=== PATIENT | female | born 2000 | race Caucasian/White ===

== ENCOUNTER 2020-09-06 20:31 | Emergency (ER) | payer OTHER, SELFPAY ==
[2020-09-06 20:47] VITALS: BP 140/96; PULSE 65; RESP 16; TEMP 37.1; O2SAT 99; BMI 22.7
[2020-09-06 22:00] VITALS: BP 140/89; PULSE 62; RESP 18; TEMP 36.8; O2SAT 100
--- NOTE | 2020-09-06 22:01 | US_ITS ---
EXAMINATION: US ABDOMEN LIMITED CLINICAL INFORMATION: Right upper quadrant pain. Question gallstone. COMPARISON: None TECHNIQUE: Real-time imaging of the right upper quadrant abdominal viscera. FINDINGS: PANCREAS: Normal. LIVER: Normal. The liver is normal in size. The liver contour is normal. Parenchymal echogenicity is normal. No focal hepatic lesion. There is no intrahepatic biliary duct dilatation seen. GALLBLADDER: Normal. The gallbladder is physiologically distended without evidence of stones, sludge, polyps, wall thickening or pericholecystic fluid. The voice over announcer reports tenderness upon imaging of the gallbladder. COMMON BILE DUCT: Normal in caliber measuring 0.6 cm in diameter. RIGHT KIDNEY: Normal. No hydronephrosis. No renal calculi or focal parenchymal lesions. The kidney measures 10.2 cm in maximum dimension. FREE FLUID: None. US/US abdomen limited IMPRESSION: The voice over announcer reports tenderness upon imaging of the gallbladder but no gallstones, gallbladder wall thickening, or pericholecystic fluid are seen.
--- NOTE | 2020-09-06 22:01 | ED.ABDPAIN ---
HPI - Abdominal Pain General Chief Complaint: Abdominal Pain Stated Complaint: Abdominal Pain Time Seen by Provider: 09/06/20 21:47 Source: patient Mode of arrival: ambulatory Limitations: no limitations History of Present Illness HPI narrative: patient has upper abdominal epigastric pain for last few months seen her primary care doctor who did the blood today which showed high Eosinophil count 24 per patient taking Prilosec patient has increased pain after eating sometimes little nausea no vomiting MD elicited complaint: abdominal pain Pertinent past history: gastritis Onset (ago): month(s) Location: epigastric Severity: mild Related Data Home Medications Medication Instructions Recorded Confirmed L norgest/e.estradiol-e.estrad 1 tab PO DAILY 09/06/20 09/06/20 albuterol sulfate 2 puff PO Q4-6H PRN 09/06/20 09/06/20 fluconazole 1 tab PO ONCE 09/06/20 09/06/20 omeprazole 1 cap PO DAILY 09/06/20 09/06/20 Previous Rx's Medication Instructions Recorded prednisone 40 mg PO DAILY #10 tab 09/06/20 Allergies Allergy/AdvReac Type Severity Reaction Status Date / Time No Known Allergies Allergy Verified 09/06/20 20:54 Review of Systems Review of Systems REVIEW OF SYSTEMS: Pertinent positives and negatives are stated above in the history. GEN: no fevers, chills, fatigue HEENT: no nasal congestion, sore throat, ear pain NEURO: no headache, dizziness, focal weakness PULM: no cough, shortness of breath CV: no chest pain, palpitations, LE edema ABD: no vomiting, diarrhea : no dysuria, urgency, frequency SKIN: no rash ROS otherwise negative x 10 Physical Exam Vital Signs: Vital Signs: Last Vital Signs Temp 98.3 F 09/06/20 22:00 Pulse 62 09/06/20 22:00 Resp 18 09/06/20 22:00 BP 140/89 H 09/06/20 22:00 Pulse Ox 100 09/06/20 22:00 Body Mass Index 22.7 Appearance: Alert. Oriented X3. No acute distress. Eyes: Pupils equal, round and reactive to light. ENT: Pharynx normal. Neck: Normal inspection. Neck supple. CVS: Normal heart rate and rhythm. Pulses normal. Respiratory: No respiratory distress. Breath sounds normal. Abdomen: Soft and mild tenderness in epigastric area and right upper quadrant no rebound tenderness no guarding bowel sounds are present Skin: Skin warm and dry. Normal skin color. Normal skin turgor. Extremities: No lower extremity edema. Good range of movement Neuro: Oriented X 3. No motor deficit. No sensory deficit. MDM - Abdominal Pain MDM Narrative Medical decision making narrative: patient with epigastric pain with elevated eosinophilic count etiology is not very clear patient does have history of asthma but patient at this time no wheezing or flare up of asthma. Elevated eosinophilic count could be part of eosinophilic esophagitis. Will give a course of prednisone advised to continue Prilosec. Patient ultrasound for gallbladder is negative for gallstones Discharge Plan Discharge Clinical Impression: Esophagitis Patient Disposition: Home, Self-Care Instructions: Esophagitis (ED) Additional Instructions: continue medications take Prilosec, follow-up with plc programmer for further workup Prescriptions: New prednisone 20 mg tablet 40 mg PO DAILY Qty: 10 RF: 0 No Action fluconazole 150 mg tablet 1 tab PO ONCE RF: 0 omeprazole 40 mg capsule,delayed release(DR/EC) 1 cap PO DAILY RF: 0 albuterol sulfate 90 mcg/actuation HFA aerosol inhaler 2 puff PO Q4-6H PRN (Reason: sob) RF: 0 L norgest/e.estradiol-e.estrad 0.15 mg-30 mcg (84)/10 mcg (7) tablets,dose pack,3 month 1 tab PO DAILY RF: 0 Referrals: Apple Rodriguez MD [Physician] - 1 week [facility] Past Medical History Medical History Asthma Migraine Social History Social History Alcohol intake: current Alcohol intake frequency: a few times a month Alcohol type: hard liquor Smoked in Last 30 Days: No Use of substances other than those prescribed or required for medical reasons: No Advance Directives: No Advance Directives Information Provided: No
[2020-09-06] MEDS: Magnesium Hydrox/Alum Hydrox 30 ML ORAL.SUSP PO (22:47)
[2020-09-06] MEDS: predniSONE 20 MG TABLET 40 MG PO (23:30)
== END 2020-09-06 23:46 | disposition home or self-care (01) ==
PROVIDERS: Emergency Provider Internal Medicine; PCP Internal Medicine
DX: K20.90 Esophagitis, unspecified without bleeding (principal); Z79.899 Other long term (current) drug therapy
CPT/HCPCS: 76705; 99284

== ENCOUNTER → 2020-10-13 12:02 | Outpatient (BNVA) | payer OTHER, SELFPAY | PROVIDERS: PCP Internal Medicine; Visit Provider Physician Assistant | DX: Z76.89 Persons encountering health services in other specified circumstances (principal) ==

== ENCOUNTER 2020-10-15 10:32 | Outpatient (REF) | payer OTHER, SELFPAY ==
[2020-10-15 11:12] LABS: MANUAL DIFF FLAG NO
[2020-10-15 11:16] LABS: Basophils Absolute Auto 0.1 X10*3/uL (0.0-0.2); Basophils Percent Auto 0.9 % (0-2); Eosinophils Absolute Auto 0.2 X10*3/uL (0.0-0.4); Eosinophils Percent Auto 3.8 % (0-4); Hematocrit 39.5 % (37-47); Imm Gran Abs Auto 0.01 X10*3/uL (0.00-0.03); Imm Gran Pct Auto 0.2 % (0.0-0.4); Lymphocytes Absolute Auto 1.6 X10*3/uL (1.2-4.9); Lymphocytes Percent Auto 25.5 % (20-40); Mean Corpuscular HGB Conc 32.9 g/dl (31.0-35.0); Mean Platelet Volume 9.7 fL (9.4-12.3); Monocytes Absolute Auto 0.4 X10*3/uL (0.1-1.2); Monocytes Percent Auto 6.9 % (2-11); Neutrophils Percent Auto 62.7 % (45-73); Platelet Count 353 X10*3/uL (160-400); Red Blood Count 4.49 X10*6/uL (4.20-5.50); Red Cell Distribution Width 12.8 % (11.0-16.0); White Blood Count 6.4 X10*3/uL (4.8-10.8)
[2020-10-15 11:41] LABS: Alanine Aminotransferase 13 U/L (0-31); Alkaline Phosphatase 46 U/L (39-117); Anion Gap 14 (12-20); Aspartate Amino Transferase 13 U/L (5-31); Bilirubin Total 0.6 mg/dL (0.0-1.0); Blood Urea Nitrogen 11 mg/dL (9-16); Calcium 9.3 mg/dL (8.4-10.2); Carbon Dioxide 24 mmol/L (22-29); Chloride 105 mmol/L (96-108); Estimated Glomerular Filt Rate > 60; Glucose Random 93 mg/dL (60-115); Potassium 4.5 mmol/l (3.3-5.1); Sodium 138 mmol/L (135-145); Total Protein 6.7 g/dL (6.5-8.0)
[2020-10-15 12:01] LABS: Thyroid Stimulating Hormone 1.02 uIU/mL (0.32-4.0)
[2020-10-17 13:23] LABS: Transglutaminase IgA 1 U/mL
[2020-10-21 18:32] LABS: Endomysial IgA Antibody Negative (Negative)
== END 2020-10-15 10:33 | disposition home or self-care (01) ==
LOC: HO.LAB 10:32
PROVIDERS: PCP Internal Medicine; Visit Provider Physician Assistant
DX: R10.11 Right upper quadrant pain (principal); R74.01 Elevation of levels of liver transaminase levels; R19.7 Diarrhea, unspecified; K59.09 Other constipation
CPT/HCPCS: 36415; 80053; 83516; 84443; 85025; 86255; 86256

== ENCOUNTER → 2020-10-25 10:11 | Outpatient (BNVA) | payer OTHER, SELFPAY | PROVIDERS: PCP Internal Medicine; Visit Provider Physician Assistant ==

== ENCOUNTER 2024-08-22 00:26 | Emergency (ER) | payer OTHER, SELFPAY ==
[2024-08-22] VITALS (14 sets, daily range): BP systolic 106–131; BP diastolic 63–87; PULSE 64–104; RESP 14–18; TEMP 36.4–36.8; O2SAT 98–100; BMI 19.8
--- NOTE | ~2024-08-22 | US_ITS ---
EXAMINATION: US APPENDIX, US PELVIS TRANSABDOMINAL AND TRANSVAGINAL, US PELVIC DUPLEX COMPLETE CLINICAL INFORMATION: RLQ pain COMPARISON: None. TECHNIQUE: Endovaginal and transabdominal pelvic ultrasound with grayscale, color and spectral Doppler interrogation. Right lower quadrant graded compression wagner scale and color ultrasonography. Right upper quadrant limited ultrasonography of the abdomen. FINDINGS: Pelvic ultrasonography: Uterus is anteverted measuring 7.4 cm x 2.9 cm x 4.6 cm. The endometrial echocomplex measures 4 mm in width. No endometrial cavity fluid collections identified. No myometrial lesions noted. Right ovary measures 3.1 cm x 1.0 cm x 2.1 cm. The left ovary measures 2.4 cm x 1.4 cm x 1.6 cm. The ovaries are normal in appearance and demonstrate normal appearance on color Doppler interrogation. Low resistive mixed arterial and venous waveforms are noted and spectral Doppler interrogation of the left and right ovaries. No significant free intraperitoneal fluid collections are identified. Trace anechoic free intraperitoneal fluid noted. Right lower quadrant ultrasound: The appendix is not visualized. Grossly normal appearance of the pelvic sidewall vessels on color and spectral Doppler interrogation. Right upper quadrant ultrasound: Normal appearance of visualized pancreatic head and body. Normal appearance of the visualized superior components of the inferior vena cava. Normal appearance of the liver. Normal hepatic size and capsular contour. Normal appearance of the gallbladder. No cholelithiasis identified. The gallbladder wall measures 2 mm in width within normal limits of size. Tenderness is reported in the area of the gallbladder by the certified surgical technologist. The common bile duct is normal in appearance measuring 6 cm in diameter. The right kidney is normal in appearance measuring 10.2 cm. No hydronephrosis or renal calculi noted. US/US pelvic ovarian doppler IMPRESSION: Pelvic ultrasound: *Normal to normal appearance of the uterus and ovaries. Right upper quadrant ultrasound: *Normal. No cholelithiasis. Of note, the certified surgical technologist reported tenderness in the region of the gallbladder on sonographic interrogation. Normal appearance of the gallbladder. *Right lower quadrant ultrasound: Negative. Indeterminate with regards to acute appendicitis. The appendix is not visualized. No abnormalities identified. Electronically signed by: Parag Alatorre MD 08/22/2024 02:22 AM [facility] [place]
--- NOTE | ~2024-08-22 | CT_ITS ---
EXAMINATION: CT ABDOMEN AND PELVIS WITH CONTRAST CLINICAL INFORMATION: Right lower quadrant pain. Right lower quadrant ultrasound, pelvic ultrasound and right upper quadrant ultrasound 08/22/2024. COMPARISON: None available. TECHNIQUE: Multidetector volumetric images were obtained from the superior aspect of the liver through the pubic symphysis following administration 85 mL of Omnipaque 350 intravenous contrast. Sagittal and coronal reformatted images were obtained on the technologist's workstation. Oral contrast: No This CT examination was performed using dose optimization techniques as appropriate, variously including the following: *Automated exposure control *Adjustment of mA and/or kV according to patient size (this includes techniques or standardized protocols for targeted exams where dose is matched to indication/reason for exam; i.e. extremities or head) *Use of iterative reconstruction technique DLP: 330 mGy-cm FINDINGS: LUNG BASES: The visualized lung bases are unremarkable. LIVER, GALLBLADDER, AND BILIARY TREE: A 1.3 cm diameter lesion with peripheral nodular enhancement that is isointense to portal venous enhancement is present in the posterior segment of the right lobe of the liver has the appearance of a benign hemangioma. The liver is otherwise normal in appearance. The gallbladder is unremarkable with no evidence of radiopaque gallstones, gallbladder wall thickening, or obvious pericholecystic inflammatory changes. PANCREAS: Unremarkable. SPLEEN: Unremarkable. ADRENAL GLANDS: Unremarkable. KIDNEYS AND URETERS: Bilaterally symmetric nephrographic enhancement and early excretion is noted. No hydronephrosis or perinephric inflammatory changes. BLADDER: Decompressed. GASTROINTESTINAL TRACT: The appendix demonstrates an outer wall diameter of 9 mm. (Series 7 image 33, series 3 image 62). Fluid is noted within the lumen of the appendix a 6 mm x 3 mm (longitudinal by transverse) calcifications present centrally within the lumen of the appendix within the middle portion of the appendix. No free intraperitoneal fluid or gas collections identified. Normal appearance of the terminal ileum. No inflammatory changes of the sigmoid mesentery or small bowel mesentery. Normal appearance of the stomach and duodenum. ABDOMINAL WALL: No significant hernia is appreciated. LYMPH NODES: Normal. VASCULAR: Unremarkable. PELVIC VISCERA: Normal appearance of the uterus and ovaries. No adnexal lesions noted. OSSEOUS STRUCTURES: No suspicious skeletal abnormalities identified. CT/CT abdomen pelvis w IV con IMPRESSION: *Acute uncomplicated appendicitis. The appendix measures 9 mm in outer wall diameter, above normal limits of size (within normal limits 6 mm or less). A 6 mm appendicolith is present within the middle segment of the body of the appendix. No evidence of perforation. No free intraperitoneal fluid or gas collections. *Incidental 1.3 cm benign-appearing hemangioma within the posterior segment of the right lobe of the liver. On the basis of this examination, no additional imaging follow-up is warranted. Electronically signed by: Parag Alatorre MD 08/22/2024 03:24 AM [facility]
--- NOTE | ~2024-08-22 | US_ITS ---
EXAMINATION: US APPENDIX, US PELVIS TRANSABDOMINAL AND TRANSVAGINAL, US PELVIC DUPLEX COMPLETE CLINICAL INFORMATION: RLQ pain COMPARISON: None. TECHNIQUE: Endovaginal and transabdominal pelvic ultrasound with grayscale, color and spectral Doppler interrogation. Right lower quadrant graded compression wagner scale and color ultrasonography. Right upper quadrant limited ultrasonography of the abdomen. FINDINGS: Pelvic ultrasonography: Uterus is anteverted measuring 7.4 cm x 2.9 cm x 4.6 cm. The endometrial echocomplex measures 4 mm in width. No endometrial cavity fluid collections identified. No myometrial lesions noted. Right ovary measures 3.1 cm x 1.0 cm x 2.1 cm. The left ovary measures 2.4 cm x 1.4 cm x 1.6 cm. The ovaries are normal in appearance and demonstrate normal appearance on color Doppler interrogation. Low resistive mixed arterial and venous waveforms are noted and spectral Doppler interrogation of the left and right ovaries. No significant free intraperitoneal fluid collections are identified. Trace anechoic free intraperitoneal fluid noted. Right lower quadrant ultrasound: The appendix is not visualized. Grossly normal appearance of the pelvic sidewall vessels on color and spectral Doppler interrogation. Right upper quadrant ultrasound: Normal appearance of visualized pancreatic head and body. Normal appearance of the visualized superior components of the inferior vena cava. Normal appearance of the liver. Normal hepatic size and capsular contour. Normal appearance of the gallbladder. No cholelithiasis identified. The gallbladder wall measures 2 mm in width within normal limits of size. Tenderness is reported in the area of the gallbladder by the blood bank technologist. The common bile duct is normal in appearance measuring 6 cm in diameter. The right kidney is normal in appearance measuring 10.2 cm. No hydronephrosis or renal calculi noted. US/US appendix IMPRESSION: Pelvic ultrasound: *Normal to normal appearance of the uterus and ovaries. Right upper quadrant ultrasound: *Normal. No cholelithiasis. Of note, the blood bank technologist reported tenderness in the region of the gallbladder on sonographic interrogation. Normal appearance of the gallbladder. *Right lower quadrant ultrasound: Negative. Indeterminate with regards to acute appendicitis. The appendix is not visualized. No abnormalities identified. Electronically signed by: Parag Alatorre MD 08/22/2024 02:22 AM [facility] [place]
--- NOTE | ~2024-08-22 | US_ITS ---
EXAMINATION: US APPENDIX, US PELVIS TRANSABDOMINAL AND TRANSVAGINAL, US PELVIC DUPLEX COMPLETE CLINICAL INFORMATION: RLQ pain COMPARISON: None. TECHNIQUE: Endovaginal and transabdominal pelvic ultrasound with grayscale, color and spectral Doppler interrogation. Right lower quadrant graded compression wagner scale and color ultrasonography. Right upper quadrant limited ultrasonography of the abdomen. FINDINGS: Pelvic ultrasonography: Uterus is anteverted measuring 7.4 cm x 2.9 cm x 4.6 cm. The endometrial echocomplex measures 4 mm in width. No endometrial cavity fluid collections identified. No myometrial lesions noted. Right ovary measures 3.1 cm x 1.0 cm x 2.1 cm. The left ovary measures 2.4 cm x 1.4 cm x 1.6 cm. The ovaries are normal in appearance and demonstrate normal appearance on color Doppler interrogation. Low resistive mixed arterial and venous waveforms are noted and spectral Doppler interrogation of the left and right ovaries. No significant free intraperitoneal fluid collections are identified. Trace anechoic free intraperitoneal fluid noted. Right lower quadrant ultrasound: The appendix is not visualized. Grossly normal appearance of the pelvic sidewall vessels on color and spectral Doppler interrogation. Right upper quadrant ultrasound: Normal appearance of visualized pancreatic head and body. Normal appearance of the visualized superior components of the inferior vena cava. Normal appearance of the liver. Normal hepatic size and capsular contour. Normal appearance of the gallbladder. No cholelithiasis identified. The gallbladder wall measures 2 mm in width within normal limits of size. Tenderness is reported in the area of the gallbladder by the blood bank technologist. The common bile duct is normal in appearance measuring 6 cm in diameter. The right kidney is normal in appearance measuring 10.2 cm. No hydronephrosis or renal calculi noted. US/US pelvic and transvaginal IMPRESSION: Pelvic ultrasound: *Normal to normal appearance of the uterus and ovaries. Right upper quadrant ultrasound: *Normal. No cholelithiasis. Of note, the blood bank technologist reported tenderness in the region of the gallbladder on sonographic interrogation. Normal appearance of the gallbladder. *Right lower quadrant ultrasound: Negative. Indeterminate with regards to acute appendicitis. The appendix is not visualized. No abnormalities identified. Electronically signed by: Parag Alatorre MD 08/22/2024 02:22 AM [facility]
--- NOTE | 2024-08-22 00:50 | ED_ITS ---
HPI - Abdominal Pain General Chief Complaint: Abdominal Pain Stated Complaint: severe abd pain Time Seen by Provider: 08/22/24 00:44 Source: patient, family and old records reviewed Mode of arrival: ambulatory Limitations: no limitations History of Present Illness ED Provider: ANTONIO ALCANTAR narrative: 23 yo female with PMH of esophagitis, constipation, asthma, migraines, prior abdominal pain here with c/o 3 hours abrupt onset upper now RLQ pain with nausea. No constipation, diarrhea, no vomiting but has nausea. No fevers. States this is different than her baseline pain it usually goes away. Pain with movements MD elicited complaint: abdominal pain Pertinent past history: none Onset (ago): hour(s) (3) Pain Consistency: constant Location: epigastric and RLQ Severity: moderate Quality: aching Radiation: epigastric Migration to: no migration Exacerbating factors: nothing Relieving factors: nothing Associated symptoms: nausea Treatments prior to arrival: antacids Related Data Home Medications ?Medication ?Instructions ?Recorded ?Confirmed L norgest/E estradiol-E estrad 1 tab PO DAILY 09/06/20 10/25/20 0.15 mg-30 mcg (84)/10 mcg(7) tabs,3mos albuterol sulfate 90 mcg/actuation 2 puff PO Q4-6H PRN sob 09/06/20 10/25/20 aerosol inhaler Previous Rx's ?Medication ?Instructions ?Recorded docusate sodium 100 mg capsule 100 mg PO BEDTIME #30 caps 10/13/20 (Colace) methylcellulose (laxative) 500 mg 500 mg PO BID #60 tabs 10/13/20 tablet (Citrucel) Allergies Allergy/AdvReac Type Severity Reaction Status Date / Time No Known Allergies Allergy Verified 08/22/24 00:33 Review of Systems Review of Systems Constitutional : No Weight loss, No Fever, No Chills ENT/Mouth : No sore throat, No Rhinorrhea Eyes: No Swelling, No Redness Cardiovascular : No Chest Pain, No SOB, NoEdema Respiratory : No Cough, No Sputum, No Wheezing Gastrointestinal : Positive Nausea, no Vomiting, no Diarrhea, positive abdominal Pain, No Hematochezia, No Melena Genitourinary : No Dysuria, No Urinary Frequency, No Hematuria, No Urgency Musculoskeletal : No joint pain, No Myalgias, No Joint Swelling Skin : No Skin Lesions, No rash Neuro : No Weakness, No Numbness, No Dizziness, No Headache Psych : No Anxiety/Panic, No Depression All other systems reviewed and are negative. [facility] Past Medical History Attestation statement: The following information was validated with the patient. Source: old records reviewed Medical History Abdominal pain Migraine Asthma Surgical History [place] teeth extracted Social History Social History Household Members Other:: single Alcohol intake: current Alcohol intake frequency: holidays/special occasions only Alcohol type: hard liquor Smoked in Last 30 Days: No Use of substances other than those prescribed or required for medical reasons: No Advance Directives: No Advance Directives Information Provided: Yes Do you have a plan to hurt others: No Plan Physical Exam ED Vital Signs: Vital Signs - 24 hr 08/22/24 00:33 08/22/24 02:00 Temperature 97.5 F 98.1 F Pulse Rate 69 77 Respiratory Rate 16 18 Blood Pressure 125/84 113/77 Pulse Oximetry 100 99 Oxygen Delivery Method Room Air Room Air BMI result Body Mass Index 19.8 Appearance: Alert. Oriented X3. No acute distress. Eyes: Pupils equal, round and reactive to light. ENT: Pharynx normal. Neck: Normal inspection. Neck supple. CVS: Normal heart rate and rhythm. Pulses normal. Respiratory: No respiratory distress. Breath sounds normal. Abdomen: Soft and ttp in suprabupic area neg gagnon's sign, mild RLQ pain no rebound Skin: Skin warm and dry. Normal skin color. Normal skin turgor. Extremities: No lower extremity edema. No calf ttp Neuro: Oriented X 3. No motor deficit. No sensory deficit. Course Course Course Narrative: patient does not meet SIRS criteria IV zosyn ordered Medical Decision Making Medical Decision Making [facility] Narrative: 23 yo female with PMH of esophagitis, constipation, asthma, migraines, prior abdominal pain here with c/o upper and lower abdominal pain at this time will obtain labs, UA, US for appendix/ovary though onset it abnormal for appendicitis. IF US negative will obtain CT scan Differential Diagnosis Differential Diagnoses: The differential diagnosis associated with the presentation includes abdominal pain, gastritis, ovarian cyst, renal colic less likely, appendicitis Admission/Observation Consideration of admission/observation: Escalation of care including admission/observation considered admit for appendicitis Consult Healthcare Provider Management of the patient was discussed with: Chief Unit Forester (will admit - [place]) Lab Data MDM Lab Attestation statement: I reviewed the patient's lab results. 08/22/24 00:52 08/22/24 00:53 Labs: Lab Results 08/22/24 08/22/24 Range/Units 00:52 00:53 WBC 14.9 H (4.8-10.8) X10*3/uL RBC 4.51 (4.20-5.50) X10*6/uL Hgb 13.2 (12.0-16.0) g/dl Hct 38.5 (37.0-47.0) % MCV 85.4 (80.0-98.0) fL MCH 29.3 (27.0-33.0) pg MCHC 34.3 (31.0-35.0) g/dl RDW 13.0 (11.0-16.0) % Plt Count 383 (160-400) X10*3/uL MPV 9.4 (9.4-12.3) fL Immature Gran % (Auto) 0.3 (0.0-0.4) % Neut % (Auto) 77.4 H (45-73) % Lymph % (Auto) 14.6 L (20-40) % [place] % (Auto) 6.0 (2-11) % Eos % (Auto) 1.1 (0-4) % Baso % (Auto) 0.6 (0-2) % Lymph # (Auto) 2.2 (1.2-4.9) X10*3/uL [place] # (Auto) 0.9 (0.1-1.2) X10*3/uL Eos # (Auto) 0.2 (0.0-0.4) X10*3/uL Baso # (Auto) 0.1 (0.0-0.2) X10*3/uL Abs Immat Gran (auto) 0.04 H (0.00-0.03) X10*3/uL Absolute Neuts (auto) 11.5 H (2.0-8.3) x10*3/uL Absolute Nucleated RBC 0.000 (0.0-0.012) X10*3/uL Nucleated RBC % (auto) 0.0 (0.0-0.2) /100WBC Sodium 140 (135-145) mmol/L Potassium 3.5 (3.3-5.1) mmol/L Chloride 109 H (96-108) mmol/L Carbon Dioxide 24 (22-29) mmol/L Anion Gap 11 L (12-20) BUN 8 L (9-16) mg/dL Creatinine 0.82 (0.5-1.4) mg/dL Estim Creat Clear Calc 93.0 Estimated GFR > 60 Random Glucose 109 (60-115) mg/dL Calcium 9.5 (8.4-10.2) mg/dL Magnesium 2.0 (1.6-2.6) mg/dL Total Bilirubin 0.4 (0.0-1.0) mg/dL Direct Bilirubin 0.1 (0.0-0.5) mg/dL AST 14 (5-31) U/L ALT 13 (0-31) U/L Alkaline Phosphatase 54 (39-117) U/L C-Reactive Protein 0.11 (< or = 0.50) mg/dL Total Protein 7.0 (6.5-8.0) g/dL Albumin 4.3 (3.5-5.0) g/dL Lipase 16 (8-78) U/L Beta HCG, Quant < 2 mIU/mL Urine Color Yellow Urine Appearance Cloudy Urine pH 5.5 (5.0-9.0) Ur Specific [place] 1.025 (1.005-1.025) Urine Protein Negative (Neg-Trace) mg/dL Urine Glucose (UA) Negative (Negative) mg/dL Urine Ketones Trace (Negative) mg/dL Urine Blood Negative (Negative) Urine Nitrite Negative (Negative) Ur Leukocyte Esterase Small (1+) H (Negative) Urine RBC 0-2 (0-2) /HPF Urine WBC 11-20 H (0-5) /HPF Ur Squamous Epith Cells 11-20 (0-2) /HPF Urine Bacteria 1+ (None Seen) Hyaline Casts 0-2 (0-2) /LPF Independent Interpretation I performed an independent interpretation of an: Ultrasound (no ovarian pathology ) and CT Scan Radiology Impression Discussion of test interpretation with radiology: I discussed test interpretation with the radiologist and I have reviewed the radiologist's reading. Radiologist Impression: 326am called by Radiology + acute uncomplicated appendicitis 9mm no perforation Independent Historian Clinical information obtained from an independent historian. History obtained from or confirmed by: Parent External Record Review External record reviewed: Outpatient record Medications Administered Discontinued Medications Generic Name Dose Route Start Last Admin Trade Name Freq PRN Reason Stop Dose Admin Iohexol 85 ml 08/22/24 02:58 08/22/24 02:58 Iohexol 350 Mg/Ml 100 Ml Infus..Btl IV 08/22/24 02:59 85 ml ONCE ONE Administration Ketorolac Tromethamine 15 mg 08/22/24 01:02 08/22/24 01:17 Ketorolac Tromethamine 15 Mg/Ml Vial IVPUSH 08/22/24 01:03 15 mg ONCE ONE Administration Ondansetron HCl 4 mg 08/22/24 01:02 08/22/24 01:17 Ondansetron Hcl 4 Mg/2 Ml Vial IVPUSH 08/22/24 01:03 4 mg ONCE ONE Administration Discharge Plan Discharge Clinical Impression: Abdominal pain Qualifiers: Abdominal location: right lower quadrant Qualified Code(s): R10.31 - Right lower quadrant pain Acute appendicitis Qualifiers: Acute appendicitis type: with localized peritonitis Appendicitis gangrene presence: without gangrene Appendicitis perforation presence: without perforation Appendicitis abscess presence: without abscess Qualified Code(s): K 35.30 - Acute appendicitis with localized peritonitis, without perforation or gangrene Patient Disposition: Admitted As Inpatient Print Language: Indonesian
[2024-08-22 00:59] LABS: Basophils Absolute Auto 0.1 X10*3/uL (0.0-0.2); Basophils Percent Auto 0.6 % (0-2); Eosinophils Absolute Auto 0.2 X10*3/uL (0.0-0.4); Eosinophils Percent Auto 1.1 % (0-4); Hematocrit 38.5 % (37.0-47.0); Hemoglobin 13.2 g/dl (12.0-16.0); Imm Gran Abs Auto 0.04 X10*3/uL (0.00-0.03); Imm Gran Pct Auto 0.3 % (0.0-0.4); Lymphocytes Absolute Auto 2.2 X10*3/uL (1.2-4.9); Lymphocytes Percent Auto 14.6 % (20-40); MANUAL DIFF FLAG NO; Mean Corpuscular HGB Conc 34.3 g/dl (31.0-35.0); Mean Corpuscular Hemoglobin 29.3 pg (27.0-33.0); Mean Corpuscular Volume 85.4 fL (80.0-98.0); Mean Platelet Volume 9.4 fL (9.4-12.3); Monocytes Absolute Auto 0.9 X10*3/uL (0.1-1.2); Neutrophils Absolute Auto 11.5 x10*3/uL (2.0-8.3); Neutrophils Percent Auto 77.4 % (45-73); Platelet Count 383 X10*3/uL (160-400); Red Blood Count 4.51 X10*6/uL (4.20-5.50); White Blood Count 14.9 X10*3/uL (4.8-10.8)
[2024-08-22 01:00] LABS: Appearance Urine Cloudy; Color Urine Yellow; Glucose Urine UA Negative (Negative); Leukocyte Esterase Urine Small (1+) (Negative); Nitrite Urine Negative (Negative); PH 5.5 (5.0-9.0); Specific Gravity - Urine 1.025 (1.005-1.025); UMIC TRIGGER UACC YES; Urine Blood Negative (Negative); Urine Ketones Trace mg/dL (Negative); Urine Protein Negative (Neg-Trace)
[2024-08-22 01:05] LABS: Bacteria Urine 1+ (None Seen); Hyaline Casts Urine 0-2 /LPF (0-2); RBC Urine 0-2 /HPF (0-2); UACC Culture Trigger YES
[2024-08-22] MEDS: Ketorolac Tromethamine 15 MG/ML VIAL IVPUSH (01:17)
[2024-08-22] MEDS: ondansetron HCL 4 MG/2 ML VIAL IVPUSH (01:17)
--- NOTE | 2024-08-22 01:20 | PC.NURSE ---
Iv placed, medicated per mar.
[2024-08-22 01:24] LABS: Alanine Aminotransferase 13 U/L (0-31); Albumin Level 4.3 g/dL (3.5-5.0); Alkaline Phosphatase 54 U/L (39-117); Anion Gap 11 (12-20); Aspartate Amino Transferase 14 U/L (5-31); Bilirubin Direct 0.1 mg/dL (0.0-0.5); Bilirubin Total 0.4 mg/dL (0.0-1.0); Blood Urea Nitrogen 8 mg/dL (9-16); C Reactive Protein 0.11 mg/dL (< or = 0.50); Calcium 9.5 mg/dL (8.4-10.2); Carbon Dioxide 24 mmol/L (22-29); Chloride 109 mmol/L (96-108); Estimated Glomerular Filt Rate > 60; Glucose Random 109 mg/dL (60-115); Lipase 16 U/L (8-78); Potassium 3.5 mmol/L (3.3-5.1); Sodium 140 mmol/L (135-145)
--- NOTE | 2024-08-22 01:49 | PC.NURSE ---
pt taken to [facility].
[2024-08-22 01:50] LABS: HCG Quantitative < 2 mIU/mL
[2024-08-22] MEDS: iohexoL 350 MG/ML 100 ML INFUS..BTL 85 ML IV (02:58)
[2024-08-22] MEDS: 0.9 % Sodium Chloride 1,000 ML 100 ML IVCONT (03:45)
[2024-08-22] MEDS: Morphine Sulfate 4 MG/ML CARTRIDGE IVPUSH (03:48)
[2024-08-22] MEDS: Piperacillin Sodium/Tazobactam 3.375 GM in 0.9 % Sodium Chloride 50 ML IV (03:54)
--- NOTE | 2024-08-22 07:34 | PC.NURSE ---
report given to GEOVANNY Pradhan in the OR at this time. pt currently getting changed over/removing jewelry prior to surgery. Dr. Ness will be transporting pt via stretcher w/ NS running @ 100mls/hr. plan of care ongoing.
--- NOTE | 2024-08-22 07:42 | PC.NURSE ---
pt transported to OR via Dr. Ness and assistant professor surgical technology at this time.
--- NOTE | 2024-08-22 07:47 | P.HPGS_ITS ---
History of Present Illness History of Present Illness Date of Service: 08/22/24 Chief complaint: severe abd pain Narrative: Kristi Nelson is a 23 year old female who developed nonspecific periumbilical abdominal discomfort last evening which then relocated to right lower quadrant persistent pain. Because of progression of symptoms, patient presents to the emergency department for further evaluation. Workup including CT scan is consistent with early appendicitis. Chart was reviewed and patient evaluated. Patient denies any sick contacts. She has not had any unusual diet. No associated diarrhea. No recent foreign travel. No new medicines. PMF Past Medical History Medical History Abdominal pain Migraine Asthma Surgical History Surgical History [place] teeth extracted Social History Social History Household Members Other:: single Alcohol intake: current Alcohol intake frequency: holidays/special occasions only Alcohol type: hard liquor Smoked in Last 30 Days: No Use of substances other than those prescribed or required for medical reasons: No Advance Directives: No Advance Directives Information Provided: Yes Do you have a plan to hurt others: No Plan Meds Allergies Allergy/AdvReac Type Severity Reaction Status Date / Time No Known Allergies Allergy Verified 08/22/24 00:33 Active Medications: Current Medications Sodium Chloride (Ns) 1,000 mls @ 100 mls/hr IVCONT .Q10H VEENA Last Admin: 08/22/24 03:45 Dose: 100 mls/hr Morphine Sulfate (Morphine Sulfate 4 Mg/Ml Cartridge) 4 mg IVPUSH Q4H PRN; Pr otocol PRN Reason: Pain, Moderate(Pain Scale 4-6) Last Admin: 08/22/24 03:48 Dose: 4 mg Home Medications ?Medication ?Instructions ?Recorded ?Confirmed ?Last Taken ?Type L norgest/E estradiol-E estrad 1 tab PO DAILY 09/06/20 10/25/20 Unknown History 0.15 mg-30 mcg (84)/10 mcg(7) tabs,3mos albuterol sulfate 90 mcg/actuation 2 puff PO Q4-6H PRN sob 09/06/20 10/25/20 Unknown History aerosol inhaler Physical Exam Vital Signs: Vital Signs: Last Vital Signs Temp 98.1 F 08/22/24 06:00 Pulse 72 08/22/24 06:00 Resp 16 08/22/24 06:00 BP 110/63 08/22/24 06:00 Pulse Ox 98 08/22/24 06:00 O2 Del Method Room Air 08/22/24 06:00 BMI result Body Mass Index 19.8 Chest: Other: Chest breath sounds bilaterally, HS 1 in 2 GI: Other: Abdomen is scaphoid, soft. Localized right lower quadrant rebound tenderness. Results Results Labs: Short CBC 08/22/24 Range/Units 00:52 WBC 14.9 H (4.8-10.8) X10*3/uL Hgb 13.2 (12.0-16.0) g/dl Hct 38.5 (37.0-47.0) % Plt Count 383 (160-400) X10*3/uL BMP 08/22/24 00:53 Sodium 140 Potassium 3.5 Chloride 109 H Carbon Dioxide 24 BUN 8 L Creatinine 0.82 Calcium 9.5 Liver Function 08/22/24 Range/Units 00:53 Total Bilirubin 0.4 (0.0-1.0) mg/dL Direct Bilirubin 0.1 (0.0-0.5) mg/dL AST 14 (5-31) U/L ALT 13 (0-31) U/L Alkaline Phosphatase 54 (39-117) U/L Albumin 4.3 (3.5-5.0) g/dL Urine 08/22/24 Range/Units 00:52 Urine Color Yellow Urine Appearance Cloudy Urine pH 5.5 (5.0-9.0) Ur Specific [place] 1.025 (1.005-1.025) Urine Protein Negative (Neg-Trace) mg/dL Urine Glucose (UA) Negative (Negative) mg/dL Assessment and Plan (1) Acute appendicitis: Qualifiers: Acute appendicitis type: with localized peritonitis Appendicitis abscess presence: without abscess Appendicitis gangrene presence: without gangrene Appendicitis perforation presence: without perforation Qualified Code(s): K35.30 - Acute appendicitis with localized peritonitis, without perforation or gangrene Status: Acute Plan Risks, benefits, alternatives of laparoscopic possible open appendectomy reviewed with the patient and her mother , who was also present during evaluation , and this included but not limited to bleeding, infection, numbness, pain, scarring, conversion to open procedure, bowel or bladder injury, and the patient wishes to proceed. All questions answered. Consent site. Quality Stroke Does the patient have a stroke diagnosis?: No VTE Prior VTE?: No VTE Risk Level:: Surgical - low VTE Device Contraindication: N/A - Device Ordered VTE Drug Contraindication: Treatment Not Indicated Procedures Date of Service Date of Service: 08/22/24
--- NOTE | 2024-08-22 08:51 | HO.ANESPROP2 ---
[facility] Active Problems Active Problems: All Active Problems Acute appendicitis (Acute) Bloating (Acute) Abdominal pain (Acute) Past Medical History Medical History Abdominal pain Migraine Asthma Family History Family history of problems with anesthesia: No Surgical History Surgical History [place] teeth extracted History of Problems with Anesthesia: No Social History Social History Household Members Other:: single Alcohol intake: current Alcohol intake frequency: holidays/special occasions only Alcohol type: hard liquor Smoked in Last 30 Days: No Use of substances other than those prescribed or required for medical reasons: No Advance Directives: No Advance Directives Information Provided: Yes Do you have a plan to hurt others: No Plan Meds Allergies Allergy/AdvReac Type Severity Reaction Status Date / Time No Known Allergies Allergy Verified 08/22/24 00:33 Active Medications: Current Medications Sodium Chloride (Ns) 1,000 mls @ 100 mls/hr IVCONT .Q10H VEENA Last Admin: 08/22/24 03:45 Dose: 100 mls/hr Morphine Sulfate (Morphine Sulfate 4 Mg/Ml Cartridge) 4 mg IVPUSH Q4H PRN; Protocol PRN Reason: Pain, Moderate(Pain Scale 4-6) Last Admin: 08/22/24 03:48 Dose: 4 mg Home Medications ?Medication ?Instructions ?Recorded ?Confirmed ?Last Taken ?Type L norgest/E estradiol-E estrad 1 tab PO DAILY 09/06/20 10/25/20 Unknown History 0.15 mg-30 mcg (84)/10 mcg(7) tabs,3mos albuterol sulfate 90 mcg/actuation 2 puff PO Q4-6H PRN sob 09/06/20 10/25/20 Unknown History aerosol inhaler Exam Height,Weight and Vital Signs: Height 5 ft 6 in Weight 55.7 kg Last Vital Signs Temp 98.1 F 08/22/24 06:00 Pulse 72 08/22/24 06:00 Resp 16 08/22/24 06:00 BP 110/63 08/22/24 06:00 Pulse Ox 98 08/22/24 06:00 O2 Del Method Room Air 08/22/24 06:00 Pertinent Lab Results Pertinent Lab Results: Laboratory Tests 08/22/24 08/22/24 00:52 00:53 WBC 14.9 H RBC 4.51 Hgb 13.2 Hct 38.5 MCV 85.4 MCH 29.3 MCHC 34.3 RDW 13.0 Plt Count 383 MPV 9.4 Immature Gran % (Auto) 0.3 Neut % (Auto) 77.4 H Lymph % (Auto) 14.6 L [place] % (Auto) 6.0 Eos % (Auto) 1.1 Baso % (Auto) 0.6 Lymph # (Auto) 2.2 [place] # (Auto) 0.9 Eos # (Auto) 0.2 Baso # (Auto) 0.1 Abs Immat Gran (auto) 0.04 H Absolute Neuts (auto) 11.5 H Absolute Nucleated RBC 0.000 Nucleated RBC % (auto) 0.0 Sodium 140 Potassium 3.5 Chloride 109 H Carbon Dioxide 24 Anion Gap 11 L BUN 8 L Creatinine 0.82 Estim Creat Clear Calc 93.0 Estimated GFR > 60 Random Glucose 109 Calcium 9.5 Magnesium 2.0 Total Bilirubin 0.4 Direct Bilirubin 0.1 AST 14 ALT 13 Alkaline Phosphatase 54 C-Reactive Protein 0.11 Total Protein 7.0 Albumin 4.3 Lipase 16 Beta HCG, Quant < 2 Urine Color Yellow Urine Appearance Cloudy Urine pH 5.5 Ur Specific [place] 1.025 Urine Protein Negative Urine Glucose (UA) Negative Urine Ketones Trace Urine Blood Negative Urine Nitrite Negative Ur Leukocyte Esterase Small (1+) H Urine RBC 0-2 Urine WBC 11-20 H Ur Squamous Epith Cells 11-20 Urine Bacteria 1+ Hyaline Casts 0-2 Airway Mallampati Class: II TM Dist: >3cm Neck ROM: Full Assessment and Plan Assessment Anesthesia Assessment: Anesthesia Plan Discussed and Chart Reviewed Final Anesthetic Review Family History of Problems with Anesthesia: No History of Problems with Anesthesia: No NPO: Yes ASA Class: II and Emergency Final Preanesthetic Review: No Changes in Pt Med Stat, Meds/Allgs Chart Reviewed, Consent Obtained/Reviewed and Anes Risks/Benef Reviewed Patient Risk: Low Procedure Risk: Low Anesthetic Plan Anesthetic Plan: GA Disposition: Standard PACU
--- NOTE | 2024-08-22 09:24 | P.OP_ITS ---
Operative Note Operative Note Date of Service: 08/22/24 Narrative: Preoperative diagnosis: [] Acute appendicitis Postop diagnosis: [] The same Procedure [] laparoscopic appendectomy Surgeon: [] [employer]: [] Type of Anesthesia: [] General Indication for surgery: [] Edematous inflamed appendix. No gross evidence of perforation. Findings: [] Patient brought to the operating room, placed on operative table supine position, after an adequate level of general anesthesia was induced, the patient's abdomen was prepped and draped in usual sterile fashion. Using a supraumbilical curvilinear incision, Nguyen technique was used to insufflate abdominal cavity to 15 mm of CO2. Lower midline and suprapubic ports were placed under direct laparoscopic view, and the patient was placed in Trendelenburg position, and tilted to the left. Appendix was identified and brought onto the field with laparoscopic grasper. It is mesentery was sequentially taken down using double firing of ligature device. Appendix was then transected at the cecal base using endoscopic VINH stapler. Specimen was placed in an Endo-Catch bag, a retrieved through the umbilical port. Abdominal cavity was copiously irrigated and secured hemostasis. All ports removed under direct laparoscopic view. Wounds were closed in the following manner; umbilical wound is fascia reapproximated using interrupted 0 Vicryl sutures. Skin wounds were closed using subcuticular 4-0 Vicryl sutures followed by Steri-Strips and sterile dressings. Wounds were infiltrated 0.5% Marcaine at completion. Sponge, needle, and instrument counts reported correct. Patient tolerated the procedure well and emerged from anesthesia stable condition. EBL minimal
[2024-08-22] MEDS: fentaNYL citrate/PF 100 MCG/2 ML VIAL 50 MCG IVPUSH ×2 (09:29→09:58)
== END 2024-08-22 08:00 | disposition home or self-care (01) ==
PROVIDERS: Surgery; Emergency Provider Emergency Medicine; PCP Internal Medicine
PROC: 0DTJ4ZZ Resection of Appendix, Percutaneous Endoscopic Approach (ICD-10-PCS; CPT 44970; principal; 2024-08-22 08:00)
DX: K35.30 Acute appendicitis with localized peritonitis, without perforation or gangrene (principal); J45.909 Unspecified asthma, uncomplicated; Z79.899 Other long term (current) drug therapy; R10.31 Right lower quadrant pain; R11.0 Nausea
CPT/HCPCS: 44970; 36415; 74177; 76705; 76830; 76856; 80048; 80076; 81001; 81003; 83690; 83735; 84702; 85025; 86140; 87086; 88304; 93975; 96374; 96375; 99285; J0131; J1100; J1885; J2003; J2250; J2270; J2405; J2543; J2704; J2795; J3010; Q9967

== ENCOUNTER → 2024-08-22 00:56 | Outpatient (BNV) | payer OTHER, SELFPAY | PROVIDERS: Emergency Provider Emergency Medicine; PCP Internal Medicine; Visit Provider Surgery | DX: K35.30 Acute appendicitis with localized peritonitis, without perforation or gangrene (principal) | CPT/HCPCS: 44970; 99284 ==

== ENCOUNTER 2024-08-31 13:58 | Outpatient (AMB) | payer OTHER, SELFPAY ==
--- NOTE | 2024-08-31 14:02 | MHC.OFFVIS ---
Intake Visit Reasons: s/p laparoscopic appendectomy Intake Note: Patient here s/p lap appendectomy on 08-22-2024. Reports incision healing well. Patient c/o: no concerns. Only took rx pain meds the first 2days. Event Staff Member Required: No Accompanied by: Self / Same As Patient Allergies No Known Allergies Allergy (Verified 08/31/24 14:04) HPI Comments Details: Patient presents for follow-up status post laparoscopic appendectomy. She is doing well. He is tolerating a diet. Having regular bowel habits. She is increasing her activity level. She has minimal incisional discomfort. Patient would like to return to work with light duty for the 1st 2 weeks time [facility], [facility] Medical History Abdominal pain Migraine Asthma Surgical History [place] teeth extracted Social History Household Members Other:: single Alcohol intake: current Alcohol intake frequency: holidays/special occasions only Alcohol type: hard liquor Physical Exam GI Other: Abdomen is soft. All wounds clean dry and intact healing well Assessment & Plan Assessment & Plan (1) Status post laparoscopic appendectomy: Code(s): Z90.49 - Acquired absence of other specified parts of digestive tract Category: Medical Plan Patient was been given local instructions and will otherwise follow-up p.r.n.. Two week light duty note will be provided. Patient will otherwise follow-up p.r.n.. All questions answered. Coding Level of Care Code Global (85798) Diagnoses Status post laparoscopic appendectomy Z90.49
== END 2024-08-31 14:18 | disposition home or self-care (01) ==
PROVIDERS: PCP Internal Medicine; Visit Provider Surgery
DX: Z90.49 Acquired absence of other specified parts of digestive tract (principal)
CPT/HCPCS: 99024

== ENCOUNTER → 2024-08-31 13:58 | Outpatient (BNVA) | payer OTHER, SELFPAY | PROVIDERS: PCP Internal Medicine; Visit Provider Surgery ==